=== PATIENT | male | born 1985 | race Caucasian/White ===

== ENCOUNTER 2022-04-15 10:27 | Emergency (ER) | payer OTHER, SELFPAY ==
--- NOTE | 2022-04-15 10:34 | ED.GENADULT ---
HPI - General Adult General Chief complaint: Unspecified Stated complaint: hot sensation through back to the heart Time Seen by Provider: 04/15/22 10:55 Mode of arrival: ambulatory Limitations: no limitations History of Present Illness HPI narrative: 36-year-old male without significant prior medical history presents with concern for a sensation of feeling a hot feeling that started in his upper back and traveled down the back towards the chest. He reports this happened a few weeks ago. He reports on the second occasion he had a similar feeling on the other side that went toward his ear. He reports the second time he had a sensation of blurry vision. He reports on both occasions he did not experience any pain. He denies headache, chest pain, shortness of breath, cough. He denies any recent upper respiratory infections. He denies history of GERD or digestive problems. He denies headache, general malaise, vision changes, weakness in any extremity, syncope, near syncope. He reports no symptoms at this time. He denies flank pain, dysuria, hematuria, urinary flow problems. He denies any intervention for these symptoms. He denies any relieving or aggravating factors. MD complaint: Hot sensation Related Data Home Medications Medication Instructions Recorded Confirmed No Home Medications 04/15/22 04/15/22 Allergies Allergy/AdvReac Type Severity Reaction Status Date / Time No Known Allergies Allergy Verified 04/15/22 10:46 Review of Systems Review of Systems: CONSTITUTIONAL: Denies malaise, chills, sweats, or fever. EYES: Denies visual changes, redness, or discharge. ENT: Denies rhinorrhea, congestion, sinus pain, otalgia or sore throat. CARDIOVASCULAR: Denies chest pain, palpitations, or edema. RESPIRATORY: Denies cough or dyspnea. GASTROINTESTINAL: Denies abdominal pain, nausea, vomiting, diarrhea, bloody, or mucous stools. GENITOURINARY: Denies dysuria or hematuria. SKIN: Denies rash or itching. MUSCULOSKELETAL: Denies back pain, joint pain, or myalgia. NEUROLOGIC: Denies numbness, weakness, or headache. PSYCHIATRIC: Denies anxiety or depression. All systems reviewed & are unremarkable except as noted in HPI and below PMFSH Comments At time of signature, agree with nursing past medical, surgical, social and family history. There is no relevant family history pertinent to the presenting complaint Exam Narrative: GENERAL: Well-appearing, well-nourished, and in no acute distress. HEAD: Normocephalic, atraumatic. EYES: PERRLA, sclera clear, and EOMI. No nystagmus. ENT: Nares clear, turbinates pink, no rhinorrhea or epistaxis. Mucous membranes moist. TM pearly thayer with sharp light reflex bilaterally; no tragal tenderness. Oropharynx without erythema or lesions. Tonsils not enlarged and without exudate. NECK: Supple. No lymphadenopathy. No jugular venous distension, thyromegaly, or carotid bruits. Carotids were easily palpable bilaterally. CHEST: No respiratory distress. Clear to auscultation. No bony deformities, no asymmetry. Speaks in full sentences. HEART: Regular rate and rhythm. No murmur heard. Normal peripheral pulses. ABDOMEN: Soft, nontender, nondistended, normal active bowel sounds, no palpable masses. EXTREMITIES: Normal range of motion. No edema. Normal strength and sensation. SKIN: Warm, dry, no visible rash. NEURO: Alert and oriented x3. No focal deficits. Cranial nerves II through XII grossly intact PSYCH: Normal mood and affect Course Course Emergency Course: Specimen to diagnostic capability at [facility]. Discussed need for further evaluation. Patient does not have primary care was given resources to find a primary care doctor. Patient is currently not having symptoms, has not had symptoms for several weeks. Patient agrees to follow-up as directed and is aware of reasons to seek care at the emergency department. Portions of this record may have been created with voice recognition software Level of C
[2022-04-15 10:45] VITALS: BP 112/74; PULSE 76; RESP 18; TEMP 36.5; O2SAT 100
[2022-04-15 10:47] VITALS: BP 112/74; PULSE 76; RESP 18; TEMP 36.5; O2SAT 100
== END 2022-04-15 11:08 | disposition home or self-care (01) ==
PROVIDERS: Emergency Provider Nurse Practitioner
DX: R20.8 Other disturbances of skin sensation (principal)
CPT/HCPCS: 99211; G0463